=== PATIENT | female | born 1955 | race African-American/Black ===

== ENCOUNTER 2016-11-04 22:15 | Observation (INO) | payer OTHER ==
[~2016-11-04] VITALS: Ht 162.6 cm; Wt 97.0 kg
[~2016-11-04 22:15] MED LIST: ASPI81TA81; CARV3.12 PO; CLOP75TA PO; GEMF600T PO; GLIP10TA6 PO; GLIP5TAB8 PO; LISI-515 PO; METF500T PO; SIMV40TA PO; [UNRECOGNIZED DRUG - OTHER] TOP
[2016-11-04 22:17] VITALS: BP 140/90; PULSE 113; RESP 16; TEMP 97.3; O2SAT 97
--- NOTE | 2016-11-04 22:55 | RADRPT ---
EXAM DATE/TIME: 11/04/2016 22:27 [facility] COMPARISON: No previous studies available for comparison. INDICATIONS : Chest pain. MEDICAL HISTORY : Myocardial infarction. SURGICAL HISTORY : Coronary artery stent. ENCOUNTER: Initial ACUITY: 3 days PAIN SCORE: 10/10 LOCATION: Bilateral chest FINDINGS: Cardiomegaly. Clear lungs. Degenerative changes of the spine. CONCLUSION: No acute disease. Leo Monte MD on November 04, 2016 at 22:53 Board Certified Radiologist. This report was verified electronically.
[2016-11-04 22:57] LABS: AUTOMATED NEUTROPHIL # 6.2 TH/MM3 (1.8-7.7); BASOPHIL # 0.1 TH/MM3 (0-0.2); BASOPHIL % 1.1 % (0.0-2.0); EOSINOPHIL # 0.3 TH/MM3 (0-0.4); EOSINOPHIL % 2.3 % (0.0-4.0); HEMATOCRIT 40.5 % (35.0-46.0); HEMO FLAGS DIFF FINAL; LYMPH % 38.1 % (9.0-44.0); LYMPHOCYTE # 4.3 TH/MM3 (1.0-4.8); MEAN CELL VOLUME 85.4 FL (80.0-100.0); MEAN CORPUSCULAR HEMOGLOBIN 27.8 PG (27.0-34.0); MEAN CORPUSCULAR HGB CONC 32.5 % (32.0-36.0); MONO % 3.7 % (0.0-8.0); NEUT % 54.8 % (16.0-70.0); PLATELET COUNT 317 TH/MM3 (150-450); RED BLOOD COUNT 4.75 MIL/MM3 (4.00-5.30); RED CELL DISTRIBUTION WIDTH 15.8 % (11.6-17.2); WHITE BLOOD COUNT 11.3 TH/MM3 (4.0-11.0)
[2016-11-04 23:09] LABS: APTT (PATIENT) 25.5 SEC (24.3-30.1); INTERNATIONAL NORMALIZED RATIO 0.9 RATIO
[2016-11-04 23:21] LABS: ANION GAP 15 MEQ/L (5-15); BICARBONATE 23.5 MEQ/L (21.0-32.0); BLOOD UREA NITROGEN 13 MG/DL (7-18); CHLORIDE 105 MEQ/L (98-107); GLOMERULAR FILTRATION RATE 54 ML/MIN (>89); POTASSIUM 3.7 MEQ/L (3.5-5.1); SODIUM (NA) 143 MEQ/L (136-145)
[2016-11-04 23:25] LABS: CREATINE KINASE 95 U/L (26-192)
--- NOTE | 2016-11-05 00:40 | PD ---
HPI Chief Complaint: Chest Pain Time Seen by Provider: 23:27 Travel History International Travel<30 days: No Contact w/Intl Traveler<30days: No Traveled to known affect area: No History of Present Illness HPI 61-year-old female complains of chest pain. Patient states that she has intermittent left-sided chest pain past 3 days. Patient states that the pain aching pain intermittent pain localized to left chest. Patient states that the pain radiated to the left upper back.. Patient denies any palpitation nausea vomiting diaphoresis. Patient denies any coughing congestion fever chills. Patient states the pain is not associated with exertion. Patient has history of VT and stent placement in 2010. Patient states that she has history of hypertension, diabetes, dyslipidemia. She is a nonsmoker. Patient is on Plavix and aspirin 81 mg daily. PFSH Past Medical History Blood Disorders: Yes (HX DVT 2000) Cardiovascular Problems: Yes (VT/STENT) Diabetes: Yes (METFORMIN) Diminished Hearing: No Genitourinary: No Immune Disorder: No Musculoskeletal: No Neurologic: No Psychiatric: No Reproductive: No Respiratory: No Myocardial Infarction: Yes (01/2011) Menopausal: Yes Tubal Ligation: Yes Past Surgical History Coronary Stent: Yes (01/2011) Genitourinary Surgery: Yes (TUBAL LIGATION) Other Surgery: Yes Social History Alcohol Use: Yes (BEER/DAY) Tobacco Use: Yes (PPD) Substance Use: No Allergies-Medications (Allergen,Severity, Reaction): Coded Allergies: No Known Allergies (Verified , 11/04/16) Reported Meds & Prescriptions Reported Meds & Active Scripts Active Carvedilol 3.125 Mg Tab 3.125 Mg PO BID Clopidogrel (Clopidogrel Bisulfate) 75 Mg Tab 75 Mg PO DAILY Simvastatin 40 Mg Tab 40 Mg PO HS Gemfibrozil 600 Mg Tab 600 Mg PO BIDAC Take 30 minutes prior to breakfast and dinner. Glipizide 10 Mg Tab 10 Mg PO BIDAC Take 30 minutes before a meal Metformin (Metformin HCl) 500 Mg Tab 500 Mg PO BIDPC With meals Lisinopril 20 Mg Tab 20 Mg PO DAILY [mahsa contour strips] 1 Unit TOP BID Reported Aspir-81 (Aspirin) 81 Mg Tabdr Glipizide 5 Mg Tab 5 Mg PO BIDAC Take 30 minutes before a meal Review of Systems General / Constitutional: No: Fever Eyes: No: Visual changes HENT: No: Headaches Cardiovascular: Positive: Chest Pain or Discomfort Respiratory: No: Shortness of Breath Gastrointestinal: No: Abdominal Pain Genitourinary: No: Dysuria Musculoskeletal: No: Pain Skin: No Rash Neurologic: No: Weakness Psychiatric: No: Depression Endocrine: No: Polydipsia Hematologic/Lymphatic: No: Easy Bruising Physical Exam Narrative GENERAL: Well-nourished, well-developed patient. SKIN: Warm and dry. HEAD: Normocephalic. EYES: No scleral icterus. No injection or drainage. NECK: Supple, trachea midline. No JVD or lymphadenopathy. CARDIOVASCULAR: Regular rate and rhythm without murmurs, gallops, or rubs. RESPIRATORY: Breath sounds equal bilaterally. No accessory muscle use. GASTROINTESTINAL: Abdomen soft, non-tender, nondistended. MUSCULOSKELETAL: No cyanosis, or edema. BACK: Nontender without obvious deformity. No CVA tenderness. Neurologic exam normal. Data Data Last Documented VS Vital Signs Date Time Temp Pulse Resp B/P Pulse Ox O2 Delivery O2 Flow Rate FiO2 11/04/16 23:20 105 100 Room Air 11/04/16 22:17 97.3 16 140/90 Orders Electrocardiogram (11/04/16 22:22) Complete Blood Count With Diff (11/04/16 22:22) Basic Metabolic Panel (Bmp) (11/04/16 22:22) Ckmb (Isoenzyme) Profile (11/04/16 22:22) Troponin I (11/04/16 22:22) Chest, Single Ap (11/04/16 22:22) Coag Profile (11/04/16 22:22) Admit Order (Ed Use Only) (11/05/16 00:47) Labs Laboratory Tests Test 11/04/16 22:40 White Blood Count 11.3 TH/MM3 Red Blood Count 4.75 MIL/MM3 Hemoglobin 13.2 GM/DL Hematocrit 40.5 % Mean Corpuscular Volume 85.4 FL Mean Corpuscular Hemoglobin 27.8 PG Mean Corpuscular Hemoglobin 32.5 % Concent Red Cell Distribution Width 15.8 % Platelet Count 317 TH/MM3 Mean Platelet Volume 8.5 FL Neutrophils (%) (Auto) 54.8 % Lymphocytes (%) (Auto) 38.1 % Monocytes (%) (Auto) 3.7 % Eosinophils (%) (Auto) 2.3 % Basophils (%) (Auto) 1.1 % Neutrophils # (Auto) 6.2 TH/MM3 Lymphocytes # (Auto) 4.3 TH/MM3 Monocytes # (Auto) 0.4 TH/MM3 Eosinophils # (Auto) 0.3 TH/MM3 Basophils # (Auto) 0.1 TH/MM3 CBC Comment DIFF FINAL Differential Comment Prothrombin Time 10.0 SEC Prothromb Time International 0.9 RATIO Ratio Activated Partial 25.5 SEC Thromboplast Time Sodium Level 143 MEQ/L Potassium Level 3.7 MEQ/L Chloride Level 105 MEQ/L Carbon Dioxide Level 23.5 MEQ/L Anion Gap 15 MEQ/L Blood Urea Nitrogen 13 MG/DL Creatinine 1.22 MG/DL Estimat Glomerular Filtration 54 ML/MIN Rate Random Glucose 286 MG/DL Calcium Level 10.2 MG/DL Total Creatine Kinase 95 U/L Troponin I LESS THAN 0.02 NG/ML [facility] Medical Decision Making Medical Screen Exam Complete: Yes Emergency Medical Condition: Yes Medical Record Reviewed: Yes Interpretation(s) EKG shows sinus tachycardia rate 103. Nonspecific ST-T wave change. Last Impressions Chest X-Ray 11/04/162221 Signed Impressions: Service Date/Time: Friday, November 04, 2016 22:27 - CONCLUSION: No acute disease. Leo Monte MD 1239 AM. CBC within normal limit. Creatinine 1.22. Glucose 286. Calcium 10.2. Cardiac enzymes are normal. Differential Diagnosis Differential diagnosis including angina, VT, PE, pneumothorax. Narrative Course 61-year-old female with intermittent left-sided chest pain for The past 3 days. History of CAD status post VT and stent placement. Diagnosis Primary Impression: Chest pain Qualified Code: R07.9 - Chest pain, unspecified type Ryland Mehta MD Nov 05, 2016 00:40
[2016-11-05] MEDS ORDERED: ACETAMINOPHEN 500 MG CPLT PO PRN (01:00)
[2016-11-05] MEDS ORDERED: ONDANSETRON HCL 4 MG/2 ML VIAL IV PRN (01:00)
[2016-11-05] MEDS ORDERED: NITROGLYCERIN 0.4 MG SL 25 TABS/BTL SL PRN (01:00)
[2016-11-05 02:25] LABS: CREATINE KINASE 80 U/L (26-192)
[2016-11-05 04:30] VITALS: BP 108/64; PULSE 97; RESP 16; O2SAT 100
[2016-11-05 05:20] LABS: CREATINE KINASE 76 U/L (26-192)
[2016-11-05 08:00] VITALS: BP 155/99; PULSE 103; RESP 20; O2SAT 99
[2016-11-05] MEDS ORDERED: GEMFIBROZIL 600 MG TAB PO SCH (08:45)
[2016-11-05] MEDS ORDERED: DEXTROSE 50% IN WATER 50 ML VIAL(D50) IV PRN (08:45)
[2016-11-05] MEDS ORDERED: GLUCAGON 1 MG/ML VIAL IM/SQ PRN (08:45)
[2016-11-05] MEDS ORDERED: CLOPIDOGREL 75 MG TAB PO SCH (09:00)
[2016-11-05] MEDS ORDERED: CARVEDILOL 3.125 MG TAB PO SCH (09:00)
[2016-11-05] MEDS ORDERED: LISINOPRIL 20 MG TAB PO SCH (09:00)
[2016-11-05] MEDS ORDERED: REGADENOSON INJ 0.4 MG/5 ML SYR ONE (10:01)
--- NOTE | 2016-11-05 10:06 | HHI.HP ---
HPI Primary Care Physician No Primary Care Physician Chief Complaint Chest pain History of Present Illness This is a 61-year-old female with history of CAD. She was a non-STEMI in 2010 needing a stent to the first obtuse marginal. She complains of 3 days of intermittent central chest discomfort that is brought on by walking. She states that each of the last 3 days she attempted to walk and was able walk about a half a block at a slow pace before developing a pressure. She states that she would immediately stop walking when the discomfort occurred and would resolve within about 15 minutes. She was short of breath with her symptoms as well denies diaphoresis or nausea. She states that it is not the same type discomfort nor as intense of a discomfort as when she needed a stent in 2011. Denies recent illness. Denies fevers or chills. She states that she has been compliant with all her medications however she has not had follow-up with a band machine operator that placed the stent stated that she did not have the money to go to the doctor. Review of Systems General: Patient denies fevers, chills recent, and recent travel HEENT: Patient denies headache, sore throat, difficulty swallowing. Cardiovascular: Has the chest discomfort as mentioned above. Denies sensation of heart beating rapidly or irregularly. No syncope. Denies diaphoresis. Respiratory: Patient was short of breath with her symptoms. Denies inspirational chest discomfort. Denies coughing wheezing or hemoptysis. GI: Patient denies nausea, vomiting, diarrhea, abdominal pain, bloody stools. Musculoskeletal: Patient denies joint pain or edema. Denies calf pain or edema. Neurovascular: Patient denies numbness, tingling, weakness in extremities. Denies headache. Endocrine: Denies polyuria and polydipsia. Hematologic: Denies easy bruising. Skin: Denies rash or itching. Past Family Social History Allergies: Coded Allergies: No Known Allergies (Verified , 11/05/16) Past Medical History CAD with stenting of the first obtuse marginal 2010. She was a non-STEMI. Also has history of hypertension, diabetes, hyperlipidemia, and tobacco abuse. Past Surgical History Cardiac catheterization with stenting. Tubal ligation. Reported Medications Reported Meds & Active Scripts Active Carvedilol 3.125 Mg Tab 3.125 Mg PO BID Clopidogrel (Clopidogrel Bisulfate) 75 Mg Tab 75 Mg PO DAILY Simvastatin 40 Mg Tab 40 Mg PO HS Gemfibrozil 600 Mg Tab 600 Mg PO BIDAC Take 30 minutes prior to breakfast and dinner. Glipizide 10 Mg Tab 10 Mg PO BIDAC Take 30 minutes before a meal Metformin (Metformin HCl) 500 Mg Tab 500 Mg PO BIDPC With meals Lisinopril 20 Mg Tab 20 Mg PO DAILY [mahsa contour strips] 1 Unit TOP BID Reported Aspir-81 (Aspirin) 81 Mg Tabdr Active Ordered Medications Current Medications Medications (Trade) Dose Ordered Sig/Michele Route Start Time Stop Time Status Last Admin (Tylenol) 500 mg Q4H PRN PO 11/05/16 01:00 (Zofran Inj) 4 mg Q6H PRN IV 11/05/16 01:00 (Nitrostat Sl) 0.4 mg Q5M PRN SL 11/05/16 01:00 (D50w (Vial) Inj) 25 ml UNSCH PRN IV 11/05/16 08:45 (Glucagon Inj) 1 mg UNSCH PRN IM/SQ 11/05/16 08:45 (Coreg) 3.125 mg BID PO 11/05/16 09:00 (Plavix) 75 mg DAILY PO 11/05/16 09:00 (Lopid) 600 mg BIDAC PO 11/05/16 08:45 (Prinivil) 20 mg DAILY PO 11/05/16 09:00 (Protonix) 40 mg HS PO 11/05/16 21:00 Family History Both her mom and dad had CAD. Social History Patient continues to smoke cigarettes. She has been smoking about a half a pack of service daily for the last 6 years but prior that she smoked a pack of cigarettes daily for 30 years. She has on average 1 beer per day. Denies illicit drugs. Physical Exam Vital Signs Vital Signs Date Time Temp Pulse Resp B/P Pulse Ox O2 Delivery O2 Flow Rate FiO2 11/05/16 08:00 103 20 155/99 99 Room Air 11/05/16 04:30 97 16 108/64 100 Room Air 11/04/16 23:20 105 100 Room Air 11/04/16 22:17 97.3 113 16 140/90 97 Room Air Physical Exam GENERAL: This is a well-nourished, well-developed patient, in no apparent distress. Patient speaks in clear complete sentences. Patient is pleasant. HEENT: Head is atraumatic and normocephalic. Neck is supple without lymphadenopathy and trachea is midline. No JVD or carotid bruits. CARDIOVASCULAR: Regular rate and rhythm without murmurs, gallops, or rubs. RESPIRATORY: Clear to auscultation. Breath sounds equal bilaterally. No wheezes , rales, or rhonchi. Chest wall is nontender. No use of accessory muscles. GASTROINTESTINAL: Abdomen is nontender, nondistended. Abdomen soft. No obvious pulsatile mass or bruit. No CVA tenderness. Strong femoral pulses bilaterally. Normal bowel sounds in all quadrants. MUSCULOSKELETAL: Patient is moving upper and lower extremities freely. No calf tenderness or edema, no Homans sign. Strong pulses in upper and lower extremities. NEUROLOGICAL: Patient is alert and oriented. Cranial nerves 2-12 are grossly intact. No focal deficits and speech is clear. SKIN: No rash and turgor is normal. Laboratory Laboratory Tests Test 11/04/16 11/05/16 11/05/16 22:40 01:40 04:37 White Blood Count 11.3 Red Blood Count 4.75 Hemoglobin 13.2 Hematocrit 40.5 Mean Corpuscular Volume 85.4 Mean Corpuscular Hemoglobin 27.8 Mean Corpuscular Hemoglobin 32.5 Concent Red Cell Distribution Width 15.8 Platelet Count 317 Mean Platelet Volume 8.5 Neutrophils (%) (Auto) 54.8 Lymphocytes (%) (Auto) 38.1 Monocytes (%) (Auto) 3.7 Eosinophils (%) (Auto) 2.3 Basophils (%) (Auto) 1.1 Neutrophils # (Auto) 6.2 Lymphocytes # (Auto) 4.3 Monocytes # (Auto) 0.4 Eosinophils # (Auto) 0.3 Basophils # (Auto) 0.1 CBC Comment DIFF FINAL Differential Comment Prothrombin Time 10.0 Prothromb Time International 0.9 Ratio Activated Partial 25.5 Thromboplast Time Sodium Level 143 Potassium Level 3.7 Chloride Level 105 Carbon Dioxide Level 23.5 Anion Gap 15 Blood Urea Nitrogen 13 Creatinine 1.22 Estimat Glomerular Filtration 54 Rate Random Glucose 286 Calcium Level 10.2 Total Creatine Kinase 95 80 76 Troponin I LESS THAN 0.02 LESS THAN 0.02 LESS THAN 0.02 Result Diagram: 11/04/16223911/04/162239 Imaging Last Impressions Chest X-Ray 11/04/162221 Signed Impressions: Service Date/Time: Friday, November 04, 2016 22:27 - CONCLUSION: No acute disease. Loe Monte MD Course EKGs have sinus rhythm to sinus arrhythmia without significant ST segment depressions or elevations. Assessment and Plan Assessment and Plan * Chest pain: Patient does have history of CAD and has a stent. She had serial cardia enzymes and EKGs for ruling out purposes. She will be seen by Dr. Emery of cardiology in the chest pain center. She will undergo a Lexiscan. She will likely be discharged home if the Lexiscan were to be nonischemic. * CAD: This will be reassessed with stress testing. She should continue her medications. * Hypertension: Continue current medications. * Hyperlipidemia: Continue current medications. * Diabetes: She is on sliding scale insulin coverage while in the chest pain center. She needs to follow diabetic diet. She should resume her medication at discharge. * Tobacco abuse: Patient has been counseled on importance of smoking cessation. Patient is stable at this time. She is agreeable to this plan. Eren Singleton Nov 05, 2016 10:06
[2016-11-05] MEDS ORDERED: AMINOPHYLLINE INJ 250 MG/10 ML VIAL ONE (10:25)
[2016-11-05] MEDS ORDERED: INSULIN ASPART SUPPLEMENTAL SCALE SQ SCH (11:00)
[2016-11-05 11:45] VITALS: BP 125/82; PULSE 92; RESP 18; O2SAT 97
--- NOTE | 2016-11-05 11:56 | RADRPT ---
EXAM DATE/TIME: 11/05/2016 09:14 [facility] COMPARISON: No previous studies available for comparison. INDICATIONS : Left chest pain radiating to left upper back for 3 days. Angina. DOSE: 28.0 mCi Tc99m Myoview at stress. 8.8 mCi Tc99m Myoview at rest. 0.4 mg Lexiscan STRESS SYMPTOMS: Dyspnea, chest pain, and hot feeling. MEDICATIONS: 1.) 100 mg Aminophylline IV EJECTION FRACTION: 47% MEDICAL HISTORY : Myocardial infarction. Diabetes mellitus type 2. Hypercholesterolemia. Hypertension. Smoker. SURGICAL HISTORY : Tubal ligation. ENCOUNTER: Initial ACUITY: 3 days PAIN SCALE: 6/10 LOCATION: Left chest TECHNIQUE: The patient underwent pharmacologic stress with infusion of prescribed dose. Continuous ECG tracing was monitored during stress. Gated SPECT imaging was performed after stress and conventional SPECT i maging was performed at rest. The examination was performed on a SPECT/CT scanner, both attenuation and non-corrected datasets were reviewed. FINDINGS: The gated Cine loop images demonstrate mild global hypokinesis. The left ventricular ejection fracti on is calculated at 47%. The cardiac SPECT stress and rest images demonstrate large fixed defect involving the lateral wall as well as moderate size fixed defects involving the inferior wall and small defects involving the apex and anterolateral wall. These are consistent with infarcts involving the LCX and to a lesser degree RCA and LAD distributions. No reversible defects are noted to suggest ischemia. CONCLUSION: 1. Large defect involving the lateral wall suggesting large LCX infarct and smaller defects involvin g the inferior wall, apex and anterior lateral wall suggesting smaller infarcts involving the RCA and LAD distributions. 2. No reversible defect to suggest ischemia. 3. Mild global hypokinesis with left ventricular ejection fraction equaling 47%. RISK CATEGORY: High risk (greater than 3% annual mortality rate). Reji Wong MD on November 05, 2016 at 11:38 Board Certified Radiologist. This report was verified electronically.
[2016-11-05] MEDS ORDERED: ASPI81TA5 PO (12:06)
--- NOTE | 2016-11-05 12:25 | HHI.DCPOC ---
Discharge Care Plan Diagnosis: (1) Chest pain (2) CAD (coronary artery disease) (3) H/O heart artery stent (4) Hypertension (5) Diabetes mellitus (6) Hyperlipidemia (7) Tobacco abuse Goals to Promote Your Health * To prevent worsening of your condition and complications * To maintain your health at the optimal level Directions to Meet Your Goals Take your medications as prescribed Follow your dietary instruction Follow activity as directed Keep your appointments as scheduled Take your immunizations and boosters as scheduled If your symptoms worsen call your PCP, if no PCP go to Urgent Care Center or Emergency Room Smoking is Dangerous to Your Health. Avoid second hand smoke Call the 24-hour hour crisis hotline for domestic abuse at Eren Singleton Nov 05, 2016 12:24
[2016-11-05] MEDS ORDERED: glipiZIDE 10 MG TAB PO SCH ×2 (12:30→16:00)
[2016-11-05] MEDS ORDERED: CARV6.252 PO (12:37)
[2016-11-05] MEDS ORDERED: NITR0.4S SL (12:37)
[2016-11-05] MEDS ORDERED: metFORMIN HCL 500 MG TAB PO SCH (13:00)
--- NOTE | 2016-11-05 14:18 | TR ---
Date Performed: 11/05/2016 Time Performed: 10:08:57 DOCTOR: Jason Emery DRUG LIST: CLINICAL HISTORY: REASON FOR TEST: REASON FOR ENDING: OBSERVATION: CONCLUSION: Lexiscan stress test was performed under standard four minute protocol. Radionuclid e was injected one minute prior to ending the test. No electrocardiographic abormalities were present to suggest ischemia. Nuclear imaging and interpretation are pending. COMMENTS:
--- NOTE | 2016-11-05 14:18 | EKG ---
Date Performed: 11/05/2016 Time Performed: 04:57:07 PTAGE: 61 years EKG: Sinus rhythm WITH SINUS ARRHYTHMIA NORMAL ECG PREVIOUS TRACING : 11/04/2016 22.37 Since previous tracing, no significant change noted DOCTOR: Jason Emery Interpretating Date/Time 11/05/2016 14:18:04
--- NOTE | 2016-11-05 14:23 | EKG ---
Date Performed: 11/05/2016 Time Performed: 01:45:32 PTAGE: 61 years EKG: SINUS TACHYCARDIA ABNORMAL RHYTHM ECG INTERPRETATION BASED ON A DEFAULT AGE OF 40 YEARS Sin ce PREVIOUS TRACING , no significant change noted DOCTOR: Jason Emery Interpretating Date/Time 11/05/2016 14:22:15
--- NOTE | 2016-11-05 14:28 | EKG ---
Date Performed: 11/04/2016 Time Performed: 22:37:34 PTAGE: 61 years EKG: SINUS TACHYCARDIA ABNORMAL RHYTHM ECG PREVIOUS TRACING : 05/01/2011 14.35 Since previous tracing, no significant change noted DOCTOR: Jason Emery Interpretating Date/Time 11/05/2016 14:26:54
[2016-11-05] MEDS ORDERED: PANTOPRAZOLE SOD 40 MG DELAYED RELEASE TAB PO SCH (21:00)
[2016-11-24] MEDS ORDERED: CARV6.252 PO (15:22)
[2016-11-24] MEDS ORDERED: HYDR12.56 PO (15:24)
[2016-11-25] MEDS ORDERED: LISI-515 PO (16:42)
[2016-11-26] MEDS ORDERED: CLOP75TA PO ×2 (15:25→15:26)
[2016-11-26] MEDS ORDERED: SIMV40TA PO ×2 (15:26→15:43)
[2016-11-26] MEDS ORDERED: GEMF600T PO (15:43)
[2016-12-24] MEDS ORDERED: HYDR12.56 PO (07:52)
== END 2016-11-06 13:23 | disposition home or self-care (01) ==
LOC: NEPC 22:15 → NEDA 11-05 00:48 → NEDH 11-05 04:51
PROVIDERS: ADMIT Internal Medicine Cardiovascular Disease; ATTEND Internal Medicine Cardiovascular Disease
DX: R07.9 Chest pain, unspecified (principal); I25.10 Atherosclerotic heart disease of native coronary artery without angina pectoris; I10 Essential (primary) hypertension; E11.9 Type 2 diabetes mellitus without complications; E78.5 Hyperlipidemia, unspecified; F17.210 Nicotine dependence, cigarettes, uncomplicated; I25.2 Old myocardial infarction; E78.00 Pure hypercholesterolemia, unspecified; Z86.718 Personal history of other venous thrombosis and embolism; Z79.02 Long term (current) use of antithrombotics/antiplatelets; Z95.5 Presence of coronary angioplasty implant and graft; Z79.82 Long term (current) use of aspirin; Z79.84 Long term (current) use of oral hypoglycemic drugs
CPT/HCPCS: 71010; 78452; 80048; 82550; 84484; 85025; 85610; 85730; 93005; 93017; A9502; G0378; J0280; J2785

== ENCOUNTER → 2016-11-20 | Outpatient (CLI) | payer OTHER ==
[~2016-11-20] MED LIST changes: +ASPI81TA5 PO; -ASPI81TA81; -CARV3.12 PO; +CARV6.252 PO; -GLIP5TAB8 PO; +HYDR12.56 PO; +NITR0.4S SL
[2016-11-20 13:43] LABS: BASOPHIL # 0.1 TH/MM3 (0-0.2); BASOPHIL % 1.3 % (0.0-2.0); EOSINOPHIL # 0.3 TH/MM3 (0-0.4); EOSINOPHIL % 2.8 % (0.0-4.0); HEMATOCRIT 38.5 % (35.0-46.0); HEMO FLAGS DIFF FINAL; LYMPH % 34.8 % (9.0-44.0); LYMPHOCYTE # 3.8 TH/MM3 (1.0-4.8); MEAN CELL VOLUME 86.1 FL (80.0-100.0); MEAN CORPUSCULAR HEMOGLOBIN 28.8 PG (27.0-34.0); MEAN CORPUSCULAR HGB CONC 33.4 % (32.0-36.0); MONO % 5.7 % (0.0-8.0); NEUT % 55.4 % (16.0-70.0); PLATELET COUNT 340 TH/MM3 (150-450); RED BLOOD COUNT 4.47 MIL/MM3 (4.00-5.30); RED CELL DISTRIBUTION WIDTH 16.1 % (11.6-17.2); WHITE BLOOD COUNT 10.9 TH/MM3 (4.0-11.0)
[2016-11-20 14:21] LABS: ALKALINE PHOSPHATASE 69 U/L (45-117); HDL CHOLESTEROL 41.7 MG/DL (40.0-60.0); TOTAL BILIRUBIN ADULT 0.3 MG/DL (0.2-1.0)
[2016-11-20 14:25] LABS: ALT (GPT) 20 U/L (10-53); ANION GAP 7 MEQ/L (5-15); AST (GOT) 12 U/L (15-37); BICARBONATE 26.4 MEQ/L (21.0-32.0); BLOOD UREA NITROGEN 7 MG/DL (7-18); CHLORIDE 109 MEQ/L (98-107); GLOMERULAR FILTRATION RATE 83 ML/MIN (>89); GLUCOSE,FASTING 156 MG/DL (74-99); LDL CHOLESTEROL 73 MG/DL (0-99); POTASSIUM 4.8 MEQ/L (3.5-5.1); SODIUM (NA) 142 MEQ/L (136-145)
[2016-11-20 16:37] LABS: HEMOGLOBIN A1a 1.3 %; HEMOGLOBIN A1b 2.3 %; HEMOGLOBIN Ao 80.5 %; HEMOGLOBIN LA1C 2.5 %; HEMOGLOBIN P3 4.2 %
== END ==
LOC: CLAB 13:19
PROVIDERS: ATTEND Family Medicine
DX: F10.10 Alcohol abuse, uncomplicated (principal); I10 Essential (primary) hypertension; E11.9 Type 2 diabetes mellitus without complications; R46.89 Other symptoms and signs involving appearance and behavior; E66.9 Obesity, unspecified; Z72.0 Tobacco use
CPT/HCPCS: 36415; 80053; 80061; 83036; 84443; 85025

== ENCOUNTER → 2017-05-20 | Outpatient (CLI) | payer OTHER ==
[~2017-05-20] MED LIST changes: +CONTOUR2 XX; +EC-N500T PO; +MULT-65 PO; +NAPR250T PO
[2017-05-20 16:35] LABS: HEMOGLOBIN A1a 1.4 %; HEMOGLOBIN A1b 2.9 %; HEMOGLOBIN Ao 75.4 %; HEMOGLOBIN LA1C 3.8 %; HEMOGLOBIN P3 7.3 %
== END ==
LOC: CLAB 11:49
PROVIDERS: ATTEND Family Medicine
DX: E11.9 Type 2 diabetes mellitus without complications (principal)
CPT/HCPCS: 36415; 83036